=== PATIENT | female | born 1940 | race Two or more races ===

== ENCOUNTER 2017-06-24 09:25 | Outpatient (CLI) | payer OTHER | END 2017-06-24 09:35 | disposition home or self-care (01) | LOC: LAB 09:25 | DX: Z80.3 Family history of malignant neoplasm of breast (principal); D51.0 Vitamin B12 deficiency anemia due to intrinsic factor deficiency; D51.3 Other dietary vitamin B12 deficiency anemia; D69.59 Other secondary thrombocytopenia; R97.0 Elevated carcinoembryonic antigen [CEA]; D68.8 Other specified coagulation defects; A00-B99 Certain infectious and parasitic diseases; K74.69 Other cirrhosis of liver; K76.1 Chronic passive congestion of liver; R94.5 Abnormal results of liver function studies; E04.2 Nontoxic multinodular goiter; E06.3 Autoimmune thyroiditis; D50.8 Other iron deficiency anemias; D51.8 Other vitamin B12 deficiency anemias; I10 Essential (primary) hypertension; E03.8 Other specified hypothyroidism; R97.8 Other abnormal tumor markers; K76.89 Other specified diseases of liver; K75.89 Other specified inflammatory liver diseases ==

== ENCOUNTER 2017-09-23 10:28 | Outpatient (CLI) | payer OTHER | END 2017-09-23 10:29 | disposition home or self-care (01) | LOC: LAB 10:28 | DX: Z80.3 Family history of malignant neoplasm of breast (principal); D51.0 Vitamin B12 deficiency anemia due to intrinsic factor deficiency; D51.3 Other dietary vitamin B12 deficiency anemia; D69.59 Other secondary thrombocytopenia; K76.9 Liver disease, unspecified; R97.0 Elevated carcinoembryonic antigen [CEA]; D68.8 Other specified coagulation defects; A00-B99 Certain infectious and parasitic diseases; K75.9 Inflammatory liver disease, unspecified; K74.69 Other cirrhosis of liver; K76.1 Chronic passive congestion of liver; R94.5 Abnormal results of liver function studies; E04.2 Nontoxic multinodular goiter; E06.3 Autoimmune thyroiditis; D50.8 Other iron deficiency anemias; D51.8 Other vitamin B12 deficiency anemias; I10 Essential (primary) hypertension; R97.8 Other abnormal tumor markers; D64.89 Other specified anemias; N95.1 Menopausal and female climacteric states; E03.8 Other specified hypothyroidism; E78.2 Mixed hyperlipidemia; N39.8 Other specified disorders of urinary system; E11.9 Type 2 diabetes mellitus without complications; E56.8 Deficiency of other vitamins; N93.8 Other specified abnormal uterine and vaginal bleeding ==

== ENCOUNTER → 2017-09-24 | Outpatient (CLI) | payer OTHER | END | disposition home or self-care (01) | LOC: MRI 08:15 | DX: K74.69 Other cirrhosis of liver (principal); Z80.3 Family history of malignant neoplasm of breast; D51.0 Vitamin B12 deficiency anemia due to intrinsic factor deficiency; D51.3 Other dietary vitamin B12 deficiency anemia; D69.59 Other secondary thrombocytopenia; R97.0 Elevated carcinoembryonic antigen [CEA]; D68.8 Other specified coagulation defects; A00-B99 Certain infectious and parasitic diseases; K75.9 Inflammatory liver disease, unspecified; K76.1 Chronic passive congestion of liver; R94.5 Abnormal results of liver function studies; E04.2 Nontoxic multinodular goiter; E06.3 Autoimmune thyroiditis | CPT/HCPCS: 74182; A9579 ==

== ENCOUNTER 2018-01-26 09:19 | Outpatient (CLI) | payer OTHER | END 2018-01-26 15:00 | disposition home or self-care (01) | LOC: LAB 09:19 | DX: Z80.3 Family history of malignant neoplasm of breast (principal); D51.0 Vitamin B12 deficiency anemia due to intrinsic factor deficiency; D51.3 Other dietary vitamin B12 deficiency anemia; D69.59 Other secondary thrombocytopenia; K76.89 Other specified diseases of liver; R97.0 Elevated carcinoembryonic antigen [CEA]; D68.8 Other specified coagulation defects; A00-B99 Certain infectious and parasitic diseases; K75.9 Inflammatory liver disease, unspecified; K76.1 Chronic passive congestion of liver; R94.5 Abnormal results of liver function studies; E04.2 Nontoxic multinodular goiter; E06.2 Chronic thyroiditis with transient thyrotoxicosis; D50.1 Sideropenic dysphagia; D50.8 Other iron deficiency anemias; I10 Essential (primary) hypertension; E03.8 Other specified hypothyroidism; R97.8 Other abnormal tumor markers ==

== ENCOUNTER 2018-03-06 08:50 | Outpatient (CLI) | payer OTHER | END 2018-03-06 09:11 | disposition home or self-care (01) | LOC: SONOGRAMA 08:50 | DX: R10.84 Generalized abdominal pain (principal); I85.00 Esophageal varices without bleeding; R94.5 Abnormal results of liver function studies; K76.89 Other specified diseases of liver ==

== ENCOUNTER 2018-04-28 08:53 | Outpatient (CLI) | payer OTHER | END 2018-04-28 09:01 | disposition home or self-care (01) | LOC: LAB 08:53 | DX: D51.0 Vitamin B12 deficiency anemia due to intrinsic factor deficiency (principal); Z80.3 Family history of malignant neoplasm of breast; D51.3 Other dietary vitamin B12 deficiency anemia; D69.59 Other secondary thrombocytopenia; K76.89 Other specified diseases of liver; R97.0 Elevated carcinoembryonic antigen [CEA]; D68.8 Other specified coagulation defects; A00-B99 Certain infectious and parasitic diseases; K75.89 Other specified inflammatory liver diseases; K74.69 Other cirrhosis of liver; K76.1 Chronic passive congestion of liver; R94.5 Abnormal results of liver function studies; E04.2 Nontoxic multinodular goiter; E06.3 Autoimmune thyroiditis; D50.8 Other iron deficiency anemias; D51.8 Other vitamin B12 deficiency anemias; C16.8 Malignant neoplasm of overlapping sites of stomach; C25.8 Malignant neoplasm of overlapping sites of pancreas; C22.8 Malignant neoplasm of liver, primary, unspecified as to type ==

== ENCOUNTER 2018-06-21 09:22 | Outpatient (CLI) | payer OTHER | END 2018-06-21 09:31 | disposition home or self-care (01) | LOC: LAB 09:22 | DX: D51.0 Vitamin B12 deficiency anemia due to intrinsic factor deficiency (principal); Z80.3 Family history of malignant neoplasm of breast; D51.3 Other dietary vitamin B12 deficiency anemia; D69.59 Other secondary thrombocytopenia; K76.89 Other specified diseases of liver; R97.0 Elevated carcinoembryonic antigen [CEA]; D68.8 Other specified coagulation defects; A00-B99 Certain infectious and parasitic diseases; K75.89 Other specified inflammatory liver diseases; K76.1 Chronic passive congestion of liver; R94.5 Abnormal results of liver function studies; E04.2 Nontoxic multinodular goiter; E06.3 Autoimmune thyroiditis; D50.8 Other iron deficiency anemias; D51.8 Other vitamin B12 deficiency anemias; C16.9 Malignant neoplasm of stomach, unspecified; I10 Essential (primary) hypertension; Z51.81 Encounter for therapeutic drug level monitoring ==

== ENCOUNTER 2018-06-21 10:04 | Outpatient (CLI) | payer OTHER | END 2018-06-21 16:16 | disposition home or self-care (01) | LOC: NUCLEAR 10:04 | DX: I87.2 Venous insufficiency (chronic) (peripheral) (principal); D51.0 Vitamin B12 deficiency anemia due to intrinsic factor deficiency; D51.3 Other dietary vitamin B12 deficiency anemia; D69.59 Other secondary thrombocytopenia ==

== ENCOUNTER 2018-06-23 09:30 | Outpatient (CLI) | payer OTHER | END 2018-06-23 15:40 | disposition home or self-care (01) | LOC: MRI 09:30 | DX: D51.0 Vitamin B12 deficiency anemia due to intrinsic factor deficiency (principal); Z80.3 Family history of malignant neoplasm of breast; D51.3 Other dietary vitamin B12 deficiency anemia; D69.59 Other secondary thrombocytopenia; K76.89 Other specified diseases of liver; R97.0 Elevated carcinoembryonic antigen [CEA]; D68.8 Other specified coagulation defects; A00-B99 Certain infectious and parasitic diseases; K75.89 Other specified inflammatory liver diseases; K74.69 Other cirrhosis of liver; K76.1 Chronic passive congestion of liver; R94.5 Abnormal results of liver function studies; E04.2 Nontoxic multinodular goiter; E06.3 Autoimmune thyroiditis | CPT/HCPCS: 74183; A9575; 74182 ==

== ENCOUNTER 2018-09-07 08:46 | Outpatient (CLI) | payer OTHER | END 2018-09-07 13:33 | disposition home or self-care (01) | LOC: LAB 08:46 | DX: E04.2 Nontoxic multinodular goiter (principal); D51.0 Vitamin B12 deficiency anemia due to intrinsic factor deficiency; D51.3 Other dietary vitamin B12 deficiency anemia; D69.59 Other secondary thrombocytopenia; K76.89 Other specified diseases of liver; R97.0 Elevated carcinoembryonic antigen [CEA]; D68.8 Other specified coagulation defects; A00-B99 Certain infectious and parasitic diseases; K75.89 Other specified inflammatory liver diseases; K76.1 Chronic passive congestion of liver; R94.5 Abnormal results of liver function studies; E06.3 Autoimmune thyroiditis; D50.1 Sideropenic dysphagia; C22.9 Malignant neoplasm of liver, not specified as primary or secondary; I10 Essential (primary) hypertension; D51.1 Vitamin B12 deficiency anemia due to selective vitamin B12 malabsorption with proteinuria; Z80.3 Family history of malignant neoplasm of breast ==

== ENCOUNTER 2018-09-28 14:34 | Outpatient (CLI) | payer OTHER | END 2018-09-28 14:37 | disposition home or self-care (01) | LOC: RAD 14:34 | DX: Z96.653 Presence of artificial knee joint, bilateral (principal) ==

== ENCOUNTER → 2018-11-29 06:36 | Outpatient (CLI) | payer OTHER | END | disposition home or self-care (01) | LOC: LAB 06:36 | DX: D64.89 Other specified anemias (principal); M06.4 Inflammatory polyarthropathy ==

== ENCOUNTER 2018-11-29 07:32 | Outpatient (CLI) | payer OTHER | END 2018-11-29 07:37 | disposition home or self-care (01) | LOC: NUCLEAR 07:32 | DX: M25.561 Pain in right knee (principal); Z96.651 Presence of right artificial knee joint | CPT/HCPCS: 78315; 78802; A9503; A9556 ==

== ENCOUNTER → 2019-01-01 09:05 | Outpatient (CLI) | payer OTHER | END | disposition home or self-care (01) | LOC: LAB 09:05 | DX: D64.89 Other specified anemias (principal); M06.4 Inflammatory polyarthropathy; E88.89 Other specified metabolic disorders; M81.8 Other osteoporosis without current pathological fracture; E83.42 Hypomagnesemia; E56.1 Deficiency of vitamin K ==

== ENCOUNTER 2019-05-17 09:19 | Outpatient (CLI) | payer OTHER | END 2019-05-17 09:25 | disposition home or self-care (01) | LOC: LAB 09:19 | DX: R97.8 Other abnormal tumor markers (principal); D12.2 Benign neoplasm of ascending colon; D51.0 Vitamin B12 deficiency anemia due to intrinsic factor deficiency; K74.60 Unspecified cirrhosis of liver ==

== ENCOUNTER 2019-05-17 10:39 | Outpatient (CLI) | payer OTHER | END 2019-05-17 10:40 | disposition home or self-care (01) | LOC: SONOGRAMA 10:39 | DX: K74.69 Other cirrhosis of liver (principal) ==

== ENCOUNTER → 2019-08-12 08:36 | Outpatient (CLI) | payer OTHER | END | disposition home or self-care (01) | LOC: LAB 08:36 | DX: D50.8 Other iron deficiency anemias (principal); I10 Essential (primary) hypertension; Z80.3 Family history of malignant neoplasm of breast; D51.3 Other dietary vitamin B12 deficiency anemia; K76.89 Other specified diseases of liver; D68.8 Other specified coagulation defects; K75.89 Other specified inflammatory liver diseases; K76.1 Chronic passive congestion of liver; E04.2 Nontoxic multinodular goiter; C25.9 Malignant neoplasm of pancreas, unspecified; R97.0 Elevated carcinoembryonic antigen [CEA]; D51.0 Vitamin B12 deficiency anemia due to intrinsic factor deficiency; D69.59 Other secondary thrombocytopenia; A00-B99 Certain infectious and parasitic diseases; R94.5 Abnormal results of liver function studies; E06.3 Autoimmune thyroiditis; D51.8 Other vitamin B12 deficiency anemias; C22.9 Malignant neoplasm of liver, not specified as primary or secondary ==

== ENCOUNTER 2019-09-14 06:41 | Outpatient (CLI) | payer OTHER | END 2019-09-14 12:10 | disposition home or self-care (01) | LOC: LAB 06:41 | PROVIDERS: ATTEND Radiology Diagnostic Radiology | DX: N20.0 Calculus of kidney (principal) ==

== ENCOUNTER → 2019-09-30 | Outpatient (CLI) | payer OTHER | END | disposition home or self-care (01) | LOC: MRI 07:56 | PROVIDERS: ATTEND Internal Medicine Hematology & Oncology | DX: R94.5 Abnormal results of liver function studies (principal); K76.89 Other specified diseases of liver; K76.1 Chronic passive congestion of liver; D68.8 Other specified coagulation defects; D51.0 Vitamin B12 deficiency anemia due to intrinsic factor deficiency; D51.3 Other dietary vitamin B12 deficiency anemia; D69.59 Other secondary thrombocytopenia; R97.0 Elevated carcinoembryonic antigen [CEA]; A00-B99 Certain infectious and parasitic diseases; K75.89 Other specified inflammatory liver diseases; Z80.3 Family history of malignant neoplasm of breast; E04.2 Nontoxic multinodular goiter; E06.3 Autoimmune thyroiditis | CPT/HCPCS: 74183; A9575; 74182 ==

== ENCOUNTER → 2020-01-31 09:25 | Outpatient (CLI) | payer OTHER | END | disposition home or self-care (01) | LOC: LAB 09:25 | PROVIDERS: ATTEND Internal Medicine Hematology & Oncology | DX: D50.8 Other iron deficiency anemias (principal); I10 Essential (primary) hypertension; D63.1 Anemia in chronic kidney disease; Z80.3 Family history of malignant neoplasm of breast; D51.0 Vitamin B12 deficiency anemia due to intrinsic factor deficiency; D69.59 Other secondary thrombocytopenia; K76.89 Other specified diseases of liver; R97.0 Elevated carcinoembryonic antigen [CEA]; D68.8 Other specified coagulation defects; A00-B99 Certain infectious and parasitic diseases; K75.89 Other specified inflammatory liver diseases; K76.1 Chronic passive congestion of liver; R94.5 Abnormal results of liver function studies; E04.2 Nontoxic multinodular goiter; E06.3 Autoimmune thyroiditis; R80.8 Other proteinuria; R94.4 Abnormal results of kidney function studies; D51.3 Other dietary vitamin B12 deficiency anemia ==

== ENCOUNTER 2020-02-16 08:19 | Outpatient (CLI) | payer OTHER | END 2020-02-16 08:25 | disposition home or self-care (01) | LOC: SONOGRAMA 08:19 → MAMO-SONO 08:45 | PROVIDERS: ATTEND Internal Medicine Nephrology | DX: N28.89 Other specified disorders of kidney and ureter (principal); E11.22 Type 2 diabetes mellitus with diabetic chronic kidney disease; N18.2 Chronic kidney disease, stage 2 (mild) ==

== ENCOUNTER 2020-08-07 22:43 | Inpatient (IN) | payer OTHER ==
[~2020-08-07] VITALS: Ht 144.8 cm; Wt 166.0 kg
[2020-08-07] MEDS ORDERED: HUMALOG100 UNIT/2 (23:19)
[2020-08-07] MEDS ORDERED: LANTUS SOL100 UNIT/1 (23:19)
[2020-08-07] MEDS ORDERED: COZAAR50 MG (23:20)
[2020-08-07] MEDS ORDERED: FOSAMAX70 MG (23:21)
[2020-08-07] MEDS ORDERED: GLIMEPIRIDE4 MG (23:21)
[2020-08-07] MEDS ORDERED: SIMVASTATIN5 MG (23:22)
[2020-08-07] MEDS ORDERED: IRO-PLEX LIQUI120 ML (23:23)
[2020-08-07] MEDS ORDERED: LEVOTHYROXINE25 MCG (23:23)
[2020-08-07] MEDS ORDERED: APRESOLINE 10MG10 MG (23:25)
--- NOTE | 2020-08-07 23:37 | NUR ---
SE RECIBE PTE ALERTA Y ORIENTADA POR VINCENT, AMBULANDO EN COMPANIA DE FAMILIAR. PTE REFIERE SE ENVIADA POR HZENG MEDICO GENERALISTA POR DISTENCION ABDOMINAL Y EDEMA EN LAS PIERNAS. PTE REFIERE DIFICULTAD RESPIRATORIA Y MAREOS.
--- NOTE | 2020-08-08 01:22 | NUR ---
PTE FEMENINA ALERTA Y ORIENTADA EN LAS VINCENT ESFERAS ES EVALUADA POR . ORIENTA PTE SOBRE ORDENES DE [place] REFIERE COMPRENDER. PROCEDE A CANALIZAR VENA Y COLECTAR MUESTRAS DE LABORATORIO, BAJO MEDIDAS ASEPTICAS. SE ADMINISTRAN MEDICAMENTOS, BAJO MEDIDAS ASEPTICAS. SE NOTIFICA A PERSONAL DE RADIOLOGIA PARA XRAY Y CT. SE NOTIFICA A PERSONAL DE TERAPIA RESPIRATORIA MEL BARTON Y TERAPIAS DE PTE.
--- NOTE | 2020-08-08 08:49 | NUR ---
SE RECIBE PTE DEL TURNO ANTERIOR, ALERTA Y ORIENTADA EN [place] VINCENT ESFERAS, UBICADA ENCAMILLA NIVEL MAS BAJO, ARANDA DE IDENTIFICACION Y BARANDAS ELEVADAS POR PRECAUCION, SE OBSERVA CON BUEN PATRON RESPIRATORIO Y PIEL TIBIA AL TACTO. H/L PATENTE Y FRANCES DE EDEMA O ERITEMA. PENDIENTE CONSULTA CON DR Alondra MEJÍA.
== END 2020-08-11 15:03 | disposition home or self-care (01) | DRG 433 ==
LOC: ER 22:43 → SEC-K 08-08 10:04 → MEDJ 08-08 10:04
PROVIDERS: ADMIT Internal Medicine; ATTEND Internal Medicine
PROC: 0W9G3ZX Drainage of Peritoneal Cavity, Percutaneous Approach, Diagnostic (ICD-10-PCS; principal; 2020-08-08)
PROC: BW2110Z Computerized Tomography (CT Scan) of Abdomen and Pelvis using Low Osmolar Contrast, Unenhanced and Enhanced (ICD-10-PCS; 2020-08-08)
PROC: 4A033R1 Measurement of Arterial Saturation, Peripheral, Percutaneous Approach (ICD-10-PCS; 2020-08-08)
DX: K74.69 Other cirrhosis of liver (principal); K76.6 Portal hypertension; J91.8 Pleural effusion in other conditions classified elsewhere; R18.8 Other ascites; A00-B99 Certain infectious and parasitic diseases; K76.9 Liver disease, unspecified; E11.9 Type 2 diabetes mellitus without complications; I10 Essential (primary) hypertension; E78.49 Other hyperlipidemia; Z20.822 Contact with and (suspected) exposure to COVID-19; R06.02 Shortness of breath

== ENCOUNTER → 2020-08-27 09:10 | Outpatient (CLI) | payer OTHER ==
[~2020-08-27 09:10] MED LIST: APRESOLINE 10MG10 MG; COZAAR50 MG; FOSAMAX70 MG; GLIMEPIRIDE4 MG; HUMALOG100 UNIT/2; IRO-PLEX LIQUI120 ML; LANTUS SOL100 UNIT/1; LEVOTHYROXINE25 MCG; SIMVASTATIN5 MG
== END | disposition home or self-care (01) ==
LOC: LAB 09:10
PROVIDERS: ATTEND Internal Medicine Gastroenterology
DX: K74.69 Other cirrhosis of liver (principal); K74.60 Unspecified cirrhosis of liver; R10.84 Generalized abdominal pain; R94.5 Abnormal results of liver function studies; K72.90 Hepatic failure, unspecified without coma

== ENCOUNTER 2021-04-19 08:01 | Outpatient (CLI) | payer OTHER | END 2021-04-19 08:02 | disposition home or self-care (01) | LOC: LAB 08:01 | PROVIDERS: ATTEND Internal Medicine Hematology & Oncology | DX: D50.8 Other iron deficiency anemias (principal); R79.89 Other specified abnormal findings of blood chemistry; I10 Essential (primary) hypertension; R74.02 Elevation of levels of lactic acid dehydrogenase [LDH]; K76.89 Other specified diseases of liver; C25.9 Malignant neoplasm of pancreas, unspecified; R97.8 Other abnormal tumor markers; R97.0 Elevated carcinoembryonic antigen [CEA]; R77.2 Abnormality of alphafetoprotein; Z80.3 Family history of malignant neoplasm of breast; D51.0 Vitamin B12 deficiency anemia due to intrinsic factor deficiency; D51.3 Other dietary vitamin B12 deficiency anemia; D69.59 Other secondary thrombocytopenia; D68.8 Other specified coagulation defects; K75.89 Other specified inflammatory liver diseases; K74.69 Other cirrhosis of liver; R94.5 Abnormal results of liver function studies; E04.2 Nontoxic multinodular goiter; E06.3 Autoimmune thyroiditis ==

== ENCOUNTER 2021-05-06 08:23 | Outpatient (CLI) | payer OTHER | END 2021-05-06 08:24 | disposition home or self-care (01) | LOC: MRI 08:23 | PROVIDERS: ATTEND Internal Medicine Hematology & Oncology | DX: N63.11 Unspecified lump in the right breast, upper outer quadrant (principal); D51.0 Vitamin B12 deficiency anemia due to intrinsic factor deficiency; Z80.3 Family history of malignant neoplasm of breast; D51.3 Other dietary vitamin B12 deficiency anemia; D69.59 Other secondary thrombocytopenia; K76.9 Liver disease, unspecified; R97.0 Elevated carcinoembryonic antigen [CEA]; D68.8 Other specified coagulation defects; A00-B99 Certain infectious and parasitic diseases; K75.9 Inflammatory liver disease, unspecified; R94.5 Abnormal results of liver function studies; E04.2 Nontoxic multinodular goiter; E06.3 Autoimmune thyroiditis; K76.1 Chronic passive congestion of liver; N63.12 Unspecified lump in the right breast, upper inner quadrant; Z12.31 Encounter for screening mammogram for malignant neoplasm of breast | CPT/HCPCS: 74182 ==

== ENCOUNTER 2021-07-04 09:38 | Outpatient (CLI) | payer OTHER | END 2021-07-04 09:40 | disposition home or self-care (01) | LOC: LAB 09:38 | PROVIDERS: ATTEND Internal Medicine Gastroenterology | DX: K74.60 Unspecified cirrhosis of liver (principal); K75.81 Nonalcoholic steatohepatitis (NASH); K72.90 Hepatic failure, unspecified without coma; E11.9 Type 2 diabetes mellitus without complications; Z87.19 Personal history of other diseases of the digestive system ==

== ENCOUNTER 2021-08-07 10:29 | Outpatient (CLI) | payer OTHER | END 2021-08-07 10:35 | disposition home or self-care (01) | LOC: LAB 10:29 | DX: K74.60 Unspecified cirrhosis of liver (principal); K75.81 Nonalcoholic steatohepatitis (NASH); N39.0 Urinary tract infection, site not specified; E72.9 Disorder of amino-acid metabolism, unspecified; E11.9 Type 2 diabetes mellitus without complications ==

== ENCOUNTER 2021-10-10 09:13 | Outpatient (CLI) | payer OTHER | END 2021-10-10 09:17 | disposition home or self-care (01) | LOC: LAB 09:13 | PROVIDERS: ATTEND Internal Medicine Hematology & Oncology | DX: D50.8 Other iron deficiency anemias (principal); R79.9 Abnormal finding of blood chemistry, unspecified; I10 Essential (primary) hypertension; R74.02 Elevation of levels of lactic acid dehydrogenase [LDH]; K76.89 Other specified diseases of liver; C25.9 Malignant neoplasm of pancreas, unspecified; R97.8 Other abnormal tumor markers; R97.0 Elevated carcinoembryonic antigen [CEA]; R77.2 Abnormality of alphafetoprotein; D51.8 Other vitamin B12 deficiency anemias; Z80.3 Family history of malignant neoplasm of breast; D51.0 Vitamin B12 deficiency anemia due to intrinsic factor deficiency; D69.59 Other secondary thrombocytopenia; K76.9 Liver disease, unspecified; D68.8 Other specified coagulation defects; A00-B99 Certain infectious and parasitic diseases; K75.9 Inflammatory liver disease, unspecified; K76.1 Chronic passive congestion of liver; R94.5 Abnormal results of liver function studies; E04.2 Nontoxic multinodular goiter; E06.3 Autoimmune thyroiditis ==